=== PATIENT | female | born 1940 | race Caucasian/White ===

== ENCOUNTER 2018-10-19 15:47 | Emergency (ER) | payer MEDICARE, OTHER ==
[~2018-10-19] VITALS: Ht 162.6 cm; Wt 166.6 kg
[2018-10-19] MEDS ORDERED: COZAAR 25 MG TA25 M2 PO (15:54)
[2018-10-19] MEDS ORDERED: NEURONTIN 300300 M1 PO (15:54)
[2018-10-19] MEDS ORDERED: CLONIDINE HCL0.3 M3 PO (15:55)
[2018-10-19] MEDS ORDERED: TRAMADOL 50 MG50 MG PO (15:56)
[2018-10-19] MEDS ORDERED: LASIX 20 MG TAB20 MG PO (15:56)
[2018-10-19 17:46] VITALS: BP 138/77
== END 2018-10-19 17:46 | disposition home or self-care (01) ==
LOC: M.ERS 15:47
DX: S61.412A Laceration without foreign body of left hand, initial encounter (principal); S00.33XA Contusion of nose, initial encounter; I10 Essential (primary) hypertension; F32.9 Major depressive disorder, single episode, unspecified; W18.39XA Other fall on same level, initial encounter; Y93.89 Activity, other specified; Y92.89 Other specified places as the place of occurrence of the external cause; Y99.8 Other external cause status